=== PATIENT | male | born 1955 | race Caucasian/White ===

== ENCOUNTER → 2024-06-28 07:07 | Outpatient (REF) | payer MEDICARE, OTHER, SELFPAY | LOC: MRI 3T 07:07 | PROVIDERS: ATTENDING PHYSICIAN Specialist; FAMILY PHYSICIAN Family Medicine | DX: M25.511 Pain in right shoulder (principal) | CPT/HCPCS: 73221 ==

== ENCOUNTER → 2024-09-15 12:42 | Outpatient (REF) | payer MEDICARE, OTHER, SELFPAY ==
[2024-09-15 16:42] LABS: % Eosinophils 3.4 % (0-6); % Immature Granulocytes 0.3 % (0-0.5); % Lymphocytes 34.5 % (20.5-51.1); % Monocytes 10.8 % (1.7-9.3); Absolute Eosinophils 0.1 10^3/uL (0-0.7); Absolute Lymphocytes 1.3 10^3/uL (1.2-3.4); Absolute Monocytes 0.4 10^3/uL (0.1-0.6); Absolute Neutrophils 1.9 10^3/uL (1.4-6.5); Hematocrit 42.4 % (39.0-52.0); Hemoglobin 14.5 g/dL (13.0-18.0); Mean Corp Hgb Conc. 34.2 g/dL (33.0-37.0); Mean Corpuscular Hgb 30.1 pg (27.0-31.0); Mean Corpuscular Volume 88.1 fL (80.0-94.0); Mean Platelet Volume 10.3 fL (7.4-10.4); Nucleated Red Blood Cells % 0 % (-); Platelet Count 151 10^3/uL (130-400); Red Blood Cell Count 4.81 10^6/uL (4.70-6.10); Red Cell Dist. Width 13.2 % (11.5-14.5); White Blood Cell Count 3.9 10^3/uL (4.8-10.8)
[2024-09-15 16:48] LABS: Blood Urea Nitrogen 27 mg/dl (9-20); Calcium 9.5 mg/dl (8.4-10.2); Carbon Dioxide 27 mmol/L (22-30); Chloride 105 mmol/L (98-107); Glucose 167 mg/dl (70-99); Potassium 4.5 mmol/L (3.5-5.1); Sodium 142 mmol/L (135-145); eGFR > 60.00
[2024-09-15 17:19] LABS: PSA, Total - Screen 1.01 ng/ml (0.0-4.0)
== END ==
LOC: CLAB 12:42
PROVIDERS: ATTENDING PHYSICIAN Specialist; FAMILY PHYSICIAN Family Medicine
DX: Z12.5 Encounter for screening for malignant neoplasm of prostate (principal); Z01.818 Encounter for other preprocedural examination
CPT/HCPCS: 36415; 80048; 85025; G0103

== ENCOUNTER → 2025-01-16 14:58 | Outpatient (REF) | payer MEDICARE, OTHER, SELFPAY | LOC: PAVMRI 14:58 | PROVIDERS: ATTENDING PHYSICIAN Specialist; FAMILY PHYSICIAN Family Medicine | DX: M47.816 Spondylosis without myelopathy or radiculopathy, lumbar region (principal) | CPT/HCPCS: 72148 ==

== ENCOUNTER → 2025-01-31 06:55 | Outpatient (REF) | payer MEDICARE, OTHER, SELFPAY | LOC: PAVMRI 06:55 | PROVIDERS: ATTENDING PHYSICIAN Specialist; FAMILY PHYSICIAN Family Medicine | DX: M17.11 Unilateral primary osteoarthritis, right knee (principal) | CPT/HCPCS: 73721 ==

== ENCOUNTER 2025-08-02 10:02 | Emergency (ER) | payer MEDICARE, OTHER, SELFPAY ==
[2025-08-02 10:07] LABS: Glucose - Point of Care 310 mg/dl (70-99)
[2025-08-02 10:11] VITALS: BP 140/71
[2025-08-02 10:14] VITALS: BP 140/71; BMI 27.6
--- NOTE | 2025-08-02 10:48 | ED.GENMED ---
History of Present Illness
General
Chief Complaint: Blood Sugar Problem
Source: patient and ambulance crew
Exam Limitations: none
Time Seen by Provider: 08/02/25 10:17
Nursing documentation reviewed up to this point in time: agreed with
History of Present Illness
History of Present Illness:
The patient is an 85-year-old male with a history of diabetes mellitus presenting with concern for potential hypoglycemic episode. The patient reported taking his usual morning dose of 8 units of Humalog insulin before breakfast. He typically takes
20 to 22 units of Tresiba in the morning. On this occasion, the patient accidentally administered an additional 12 units of Humalog instead of his long-acting Tresiba insulin due to confusion with pen colors. This error led the patients spouse to
call emergency services. The patient attempted to correct his blood glucose levels by consuming a sugary beverage and carrying an intranasal glucagon powder (Baqsimi) as a rescue for significant hypoglycemic episodes.
His prehospital Accu-Chek was 293.
Upon arrival here 310.
He has CGM in place, currently reading 321. Patient states it was higher and is now trending down.
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 Rare hypoglycemic episodes and has never required emergency department visits for blood sugar issues.
He states his last hemoglobin A1c was slightly elevated but less than 8.
The patient expressed frustration with the recurring product switches by his insurance company that contribute to dosing errors.
Past History
Past History
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
ED Past Surgical History: Tonsilectomy and Other (Neck lipoma, hemorrhoidectomy)
Social History
Tobacco: Former smoker
Alcohol: Occasional
Personal:
Living: with family
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
Family History
Family History: Other (Noncontributory)
Phy Exam
Physical Exam
Physical Exam:
GENERAL: Alert , in no apparent distress. 69-year-old gentleman appears his stated age, awake and alert, pleasant, appears in no acute distress.
EYE: anicteric
NECK: Supple, nontender, no meningismus, no significant adenopathy.
ENT: oral mucosa is moist. No rhinorrhea.
CARDIAC: Regular rate and rhythm. no murmur.
LUNGS: Clear breath sounds bilaterally, no acute respiratory distress, no wheezes/rales/rhonchi
ABDOMEN: Soft, nondistended, without focal tenderness, no r/g, normoactive BS.
NEUROLOGICAL: Alert and oriented x3, no focal neuro deficits.
SKIN: Warm and dry, normal color, skin intact. No rash.
MUSCULOSKELETAL: No C/C/E. peripheral pulses are full and equal b/l. No palpable tenderness.
PSYCH: Normal and appropriate interaction.
Course
Orders/Labs/Results
Orders:
Orders
08/02/25 11:00
Bedside Glucose- Treatment Q1H
Abnormal Lab Results
08/02/25 08/02/25
10:05 11:00
POC Glucose 310 H mg/dl 246 H mg/dl
(70-99) (70-99)
Vital Signs
Initial and Last Documented VS:
Initial Vital Signs
Pulse Ox
99
08/02/25 10:11
Last Documented Vital Signs
Temp Pulse Resp BP Pulse Ox
98.1 F 80 16 140/71 100
08/02/25 10:14 08/02/25 10:14 08/02/25 10:14 08/02/25 10:14 08/02/25 10:50
MDM/Problems Addressed
Differential Diagnosis Includes:
The Differential Diagnosis includes, in no particular order and is not limited to:
1. Insulin overdose
2. Medication error
3. Reactive hypoglycemia
4. Hepatic insufficiency
5. Addisons disease
6. Hypopituitarism
7. Adrenal insufficiency
8. Malnutrition
9. Pancreatic tumor
10. Sepsis
MDM/Problems Addressed:
Inadvertent overdose of Humalog insulin, an additional 12 units instead of additional 12 units of long-acting insulin.
Concern for ensuing hypoglycemia.
Will continue to monitor blood glucose frequently. Patient has CGM and will plan for Accu-Cheks every hour.
Will offer turkey sandwich and snack now.
Chronic conditions affecting care: DM
Acute Exacerbation and/or Progression of Chronic Illness: DM
*Pulse Oximetry
SaO2: 100
Oxygen Mode of Delivery: Room air
Patient hypoxic: no
*Critical Care Note
Total Time (30-74mins, 75-104mins- exclusive of procedures): Not Applicable
Patient Management
Social determinants of health affecting care: Other (The patient noted frustrations with insurance-driven changes in medication packaging, potentially affecting his medication adherence and safe usage due to mistakes in selecting insulin pens.)
Update Note
Update Note:
11:30
After consuming a box lunch, blood sugar remained stable, somewhat elevated 250-290.
Patient is overall well in appearance, offers no complaints and he is eager to be discharged to home.
He will continue his CGM and has intranasal glucagon in case hypoglycemia ensues.
He is now aware to take extra precaution when looking at his insulin pens and delivering the appropriate amount of long-acting versus short acting insulin.
Will follow-up with his canvas goods supervisor.
ED Attending Note
-
Portions of this chart may have been created with voice recognition software.� Occasional wrong word or��sound alike� substitutions may have occurred due to the inherent limitations of voice recognition software.
Discharge Plan
Departure
Patient Disposition: Home (Routine Discharge)
Date of Disposition: 08/02/25
Time of Disposition: 11:35
Patient with high blood pressure during this ER visit?: No
Condition: Good
Discharge Problem:
Accidental overdose of insulin
Prescriptions:
No Action
metformin 500 mg Tablet
1,000 mg PO BID
glipizide 5 mg Tablet Extended Release 24hr
10 mg PO DAILY
omeprazole 20 mg Capsule,Delayed Release(Dr/Ec)
20 mg PO PRN PRN (Reason: GERD)
ramipril 5 mg Capsule
5 mg PO DAILY
cholecalciferol (vitamin D3) [Vitamin D3] 25 mcg (1,000 unit) Capsule
25 mcg PO DAILY
ezetimibe [Zetia] 10 mg Tablet
10 mg PO DAILY
rosuvastatin [Crestor] 40 mg Tablet
40 mg PO DAILY
insulin degludec [Tresiba FlexTouch U-100] 100 unit/mL (3 mL) Insulin Pen
15 unit SC DAILY
Jardiance 25 mg Tablet
25 mg PO DAILY
Mounjaro 10 mg/0.5 mL Pen Injector
10 mg SC VIDAL
hydrocodone-acetaminophen 7.5-325 mg Tablet
1 tab PO PRN PRN (Reason: Pain)
ibuprofen 600 mg Tablet
600 mg PO PRN PRN (Reason: Pain)
Referrals:
Harrison Munguia DO [Family Provider, Family Practice] - As needed
Interventions
Interventions:
*Risk Screen - Suicide Last Done: 08/02/25 10:14
*General Assessment Last Done: 08/02/25 10:14
*Neglect/Abuse Screening Last Done: 08/02/25 10:14
*ED- Fall Risk Assessment Last Done: 08/02/25 10:14
*ED COVID-19 Vaccine History Last Done: 08/02/25 10:14
ED- Neurological Assessment Last Done: 08/02/25 10:14
Discharge Date and Time
Print Language: SPANISH
[2025-08-02 11:01] LABS: Glucose - Point of Care 246 mg/dl (70-99)
== END 2025-08-02 11:57 | disposition home or self-care (01) ==
LOC: EMR 10:02
PROVIDERS: EMERGENCY PHYSICIAN Emergency Medicine; FAMILY PHYSICIAN Family Medicine
DX: T38.3X1A Poisoning by insulin and oral hypoglycemic [antidiabetic] drugs, accidental (unintentional), initial encounter (principal); E11.65 Type 2 diabetes mellitus with hyperglycemia; E11.49 Type 2 diabetes mellitus with other diabetic neurological complication; M19.011 Primary osteoarthritis, right shoulder; M47.812 Spondylosis without myelopathy or radiculopathy, cervical region; Z79.4 Long term (current) use of insulin; Z79.84 Long term (current) use of oral hypoglycemic drugs; Z79.85 Long-term (current) use of injectable non-insulin antidiabetic drugs; Z87.891 Personal history of nicotine dependence
CPT/HCPCS: 99283; 82962